=== PATIENT | male | born 1985 | race Caucasian/White ===

== ENCOUNTER 2023-11-18 18:19 | Inpatient (IN) | payer OTHER, SELFPAY ==
[2023-11-18 18:30] VITALS: BP 153/82; PULSE 88; RESP 18; TEMP 36.7; O2SAT 97
[2023-11-18 22:51] VITALS: BMI 27.7
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
[2023-11-19 07:54] VITALS: BP 125/81; PULSE 66; RESP 16; TEMP 36.9; O2SAT 97
[2023-11-19 08:15] LABS: Alanine Aminotransferase 39 U/L (0-40); Albumin Level 4.4 g/dL (3.5-5.0); Alkaline Phosphatase 64 U/L (39-117); Anion Gap 12 (12-20); Aspartate Amino Transferase 20 U/L (5-37); Bilirubin Total 0.4 mg/dL (0.0-1.0); Blood Urea Nitrogen 14 mg/dL (9-16); Calcium 9.8 mg/dL (8.4-10.2); Carbon Dioxide 30 mmol/L (22-29); Chloride 106 mmol/L (96-108); Cholesterol 150 mg/dL (<200); Estimated Glomerular Filt Rate > 60; Glucose Fasting 76 mg/dL (60-99); HDL Cholesterol 38 mg/dL (>40); LDL Cholesterol Calculated 96 mg/dL (<100); Potassium 4.6 mmol/L (3.3-5.1); Sodium 143 mmol/L (135-145); Total Protein 7.2 g/dL (6.5-8.0); Triglycerides 84 mg/dL (<150)
[2023-11-19 08:16] LABS: Estimated Average Glucose 105 mg/dL; Hemoglobin A1c % 5.3 % (<6.0)
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
[2023-11-19 15:45] VITALS: BP 161/81; PULSE 78; TEMP 35.9; O2SAT 97
[2023-11-19 17:45] VITALS: BP 134/93; PULSE 89; TEMP 36.3
[2023-11-19] MEDS: cloNIDine HCL 0.1 MG TABLET PO ×2 (17:48→21:24)
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
[2023-11-20] MEDS: cloNIDine HCL 0.1 MG TABLET PO ×2 (03:40→20:32)
[2023-11-20] MEDS: hydrOXYzine HCL 25 MG TABLET PO (03:40)
[2023-11-20 06:00] VITALS: BP 133/83; PULSE 69; RESP 17; TEMP 37; O2SAT 98
[2023-11-20 07:00] VITALS: BMI 28.1
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
--- NOTE | 2023-11-20 12:35 | PC.NURSE ---
Patient requested to sign a 3 day this afternoon on 11/20/23 and will be up Friday11/25/23. , Social Work and UR notified via email.
[2023-11-20 16:20] VITALS: BP 130/70; PULSE 64; RESP 17; TEMP 36.7; O2SAT 98
[2023-11-20 19:30] VITALS: BP 130/70; PULSE 64; TEMP 36.8; O2SAT 98
[2023-11-20] MEDS: risperiDONE 0.5 MG TABLET PO (20:32)
[2023-11-21] MEDS: Acetaminophen 325 MG TABLET 650 MG PO (02:06)
[2023-11-21 08:00] VITALS: BP 149/67; PULSE 80; RESP 16; TEMP 36.9; O2SAT 97
[2023-11-21] MEDS: hydrOXYzine HCL 25 MG TABLET PO ×2 (09:35→22:37)
[2023-11-21] MEDS: cloNIDine HCL 0.1 MG TABLET PO ×2 (09:35→22:37)
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
[2023-11-21 19:30] VITALS: BP 136/93; PULSE 101; RESP 16; TEMP 36.4; O2SAT 98
[2023-11-21] MEDS: traZODone HCL 50 MG TABLET PO (22:37)
--- NOTE | 2023-11-22 | ECG_ITS ---
Test Reason : chest tightness Blood Pressure : / mmHG Vent. Rate : 075 BPM Atrial Rate : 075 BPM P-R Int : 150 ms QRS Dur : 096 ms QT Int : 354 ms P-R-T Axes : 035 056 025 degrees QTc Int : 395 ms Normal sinus rhythm with sinus arrhythmia Normal ECG No previous ECGs available Referred By: Margot Braun Electronically Signed By:ELIAS CALDERON MD
[2023-11-22 08:16] VITALS: BP 123/65; PULSE 73; RESP 16; TEMP 36.9; O2SAT 97
[2023-11-22] MEDS: cloNIDine HCL 0.1 MG TABLET PO ×3 (08:41→21:42)
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
[2023-11-22 13:59] VITALS: BP 138/70; PULSE 105; RESP 18; O2SAT 98
[2023-11-22 18:00] VITALS: BP 147/82; PULSE 113; RESP 18; TEMP 36.5; O2SAT 97
[2023-11-22] MEDS: traZODone HCL 50 MG TABLET PO (21:41)
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
[2023-11-23 08:08] VITALS: BP 145/81; PULSE 71; RESP 16; TEMP 36.9; O2SAT 97
[2023-11-23] MEDS: hydrOXYzine HCL 25 MG TABLET PO (17:51)
[2023-11-23 18:00] VITALS: BP 137/86; PULSE 61; RESP 18; TEMP 37; O2SAT 98
[2023-11-23] MEDS: traZODone HCL 50 MG TABLET PO (23:19)
[2023-11-24 08:05] VITALS: BP 180/93; PULSE 94; RESP 18; TEMP 36.3; O2SAT 99
[2023-11-24] MEDS: cloNIDine HCL 0.1 MG TABLET PO (08:25)
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
== END 2023-11-24 11:30 | disposition home or self-care (01) | DRG 885 ==
PROVIDERS: Admitting Provider Psychiatry & Neurology Psychiatry; PCP Nurse Practitioner Pediatrics; Visit Provider Psychiatry & Neurology Psychiatry
DX: F33.1 Major depressive disorder, recurrent, moderate (principal); R45.851 Suicidal ideations; F41.1 Generalized anxiety disorder; F43.10 Post-traumatic stress disorder, unspecified; Z87.891 Personal history of nicotine dependence
CPT/HCPCS: 36415; 80053; 80061; 83036; 93005

== ENCOUNTER 2023-11-18 18:19 | Outpatient (BNV) | payer MEDICAID, SELFPAY | END 2023-11-22 14:22 | PROVIDERS: Admitting Provider Psychiatry & Neurology Psychiatry; PCP Nurse Practitioner Pediatrics; Visit Provider Internal Medicine Cardiovascular Disease | DX: R07.89 Other chest pain (principal) | CPT/HCPCS: 93010 ==

== ENCOUNTER → 2023-11-18 18:19 | Outpatient (BNV) | payer MEDICAID, SELFPAY | PROVIDERS: Admitting Provider Psychiatry & Neurology Psychiatry; PCP Nurse Practitioner Pediatrics; Visit Provider Student in an Organized Health Care Education/Training Program | DX: Z02.2 Encounter for examination for admission to residential institution (principal) | CPT/HCPCS: 99429 ==

== ENCOUNTER → 2023-11-18 18:19 | Outpatient (BNV) | payer OTHER, SELFPAY | PROVIDERS: Admitting Provider Psychiatry & Neurology Psychiatry; PCP Nurse Practitioner Pediatrics; Visit Provider Psychiatry & Neurology Psychiatry | DX: F33.1 Major depressive disorder, recurrent, moderate (principal); F41.1 Generalized anxiety disorder; F43.11 Post-traumatic stress disorder, acute | CPT/HCPCS: 99222; 99231; 99232; 99238 ==